=== PATIENT | male | born 1970 | race Caucasian/White ===

== ENCOUNTER 2023-03-05 10:15 | Emergency (ER) | payer OTHER ==
[2023-03-05] MEDS ORDERED: Lidocaine 1% PF 5 ML VIAL ONE (11:44)
[2023-03-05] MEDS ORDERED: Ondansetron PF 4 MG/2 ML Vial ONE (12:41)
[2023-03-05] MEDS ORDERED: Morphine 4 MG/ML VIAL ONE (12:41)
[2023-03-05] MEDS ORDERED: Magnesium Oxide 400 MG TAB ONE (13:21)
[2023-03-05] MEDS ORDERED: Bacitracin 1 PK ONE (15:38)
[2023-03-05] MEDS ORDERED: Orphenadrine Citrate 60 MG/2 ML VIAL ONE (15:38)
== END 2023-03-05 18:15 | disposition home or self-care (01) ==
LOC: MADERS 10:15
DX: S01.01XA Laceration without foreign body of scalp, initial encounter (principal); W20.8XXA Other cause of strike by thrown, projected or falling object, initial encounter
CPT/HCPCS: 12002; 70450; 72125; 72128; 96372; J2270; J2360; J2405

== ENCOUNTER 2023-03-13 09:18 | Emergency (ER) | payer OTHER | END 2023-03-13 09:52 | disposition home or self-care (01) | LOC: MADERS 09:18 | DX: S01.01XD Laceration without foreign body of scalp, subsequent encounter (principal); W18.30XD Fall on same level, unspecified, subsequent encounter ==

== ENCOUNTER 2023-04-23 12:31 | Emergency (ER) | payer OTHER ==
[2023-04-23] MEDS ORDERED: methylPREDNISolone Sod Succ/PF 125 MG/2 ML VIAL ONE (13:34)
== END 2023-04-23 13:49 | disposition home or self-care (01) ==
LOC: MADERS 12:31
DX: J20.9 Acute bronchitis, unspecified (principal); J30.9 Allergic rhinitis, unspecified
CPT/HCPCS: 71045; 96372; J2930